=== PATIENT | female | born 1945 | race Caucasian/White ===

== ENCOUNTER 2019-10-13 14:13 | Outpatient (CLI) | payer MEDICARE, OTHER, SELFPAY ==
--- NOTE | ~2019-10-13 | XR_ITS ---
EXAMINATION: XR barium swallow modified EXAM DATE: 10/13/2019 14:54 INDICATION: Dysphagia. TECHNIQUE: Modified barium esophagram was performed by myself to administered fluoroscopy, in conjun ction with speech pathologist who administered barium in varying consistencies as per speech patholog ist documentation. This was recorded on tape. The DAP for this procedure was 0.7 Gycm2. FINDINGS: Oral stage: Adequate function. Pharyngeal phase: Adequate function. Laryngeal penetration: Shallow, ejected. Aspiration: None. Laryngeal sensitivity: Present. Cervical hardware and prominent cricopharyngeal impression. IMPRESSION: Patient tolerated oral feedings in the upright position. Please refer to speech patholo gist findings and specific feeding recommendations. Reviewed, dictated and finalized at location A. H PRESS OPERATOR IMPRESSION: Patient tolerated oral feedings in the upright position. Please r efer to speech pathologist findings and specific feeding recommendations.
--- NOTE | 2019-10-13 16:41 | STOPEVAL ---
MODIFIED BARIUM SWALLOW EVALUATION: Thank you for referring this patient to [facility]. Attending Provider: Matty Mccormick MD Referring Provider: ANDREA Outpatient Evaluation Start: 10/13/19 15:24 Freq: Status: Active Protocol: Document 10/13/19 14:30 BECHERERT (Rec: 10/13/19 15:33 BECHERERT [id number]) Therapy Assessment Status Assessment Status Assessment Status Evaluation Outpatient Past Medical History Neurological History Hx Parkinson's Disease Yes: x 7 years Cardiovascular History Hx Cardiac Disorders No Significant History Respiratory History Hx Respiratory Disorders No Significant History Gastrointestinal History Hx Gastroesophageal Reflux Disease Yes Musculoskeletal History Hx Other Musculoskeletal Disorders Yes: cervical surgery x 2 with hardware Prior Level of Function Prior Swallow Level Prior Intake Method Oral Prior Diet Regular (Level 7 Diet) Prior Liquid Consistency Thin (Level 0 Diet) Pain Assessment Timing of Pain Assessment Timing of Pain Assessment Assessment Self Report Self Report Pain Level 0 Pain Scale Pain Scale Used Numeric (1 - 10) Pain Score Pain Score 0: Self Report Modified Barium Swallow Evaluation Recent Swallowing History Reports Dysphagia Yes: I choke on pill and dry foods Onset of Dysphagia quite awhile ago; at least since my last cervical surgery History of Dysphagia No History of Related Medical Diagnosis Anterior Cervical Spinal Fusion Other Factors Impacting Dysphagia Neurological Impairment History of Pneumonia No Reported Difficult Consistencies Pills,Solids Intake Method Prior to Swallow Oral Evaluation Diet Prior to Swallow Evaluation Regular, Level 7 Liquid Consistency Prior to Swallow Thin (0) Evaluation Consistency Barium Pill Method of Presentation Spoon Oral Preparatory Symptoms Within Functional Limits Oral Phase Symptoms Within Functional Limits Pharyngeal Phase Symptoms Residue in [place] 8 Point Laryngeal Penetration-Aspiration Material Does Not Enter Airway Scale Pharyngeal Phase Comments with chin tuck and extra liquid wash, pt cleared pill Cervical/Esophageal Symptoms Within Functional Limits Uncontrolled 2 Method of Presentation Straw Oral Preparatory Symptoms Within Functional Limits Oral Phase Symptoms Within Functional Limits Pharyngeal Phase Symptoms Within Functional Limits, Laryngeal Penetration Severity of Vallecular Residue None - 0% No Residue Severity of Pyriform Sinus Residue None -
== END 2019-10-13 14:14 | disposition home or self-care (01) ==
PROVIDERS: PCP Family Medicine; Visit Provider Psychiatry & Neurology Neurology
DX: R13.10 Dysphagia, unspecified (principal)
CPT/HCPCS: 92611

== ENCOUNTER 2020-02-25 09:55 | Outpatient (CLI) | payer MEDICARE, OTHER, SELFPAY ==
--- NOTE | 2020-02-25 11:00 | NEURO_ITS ---
Patient Number: [id number] Impression: # Complains of numbness and weakness of left hand. # Left ulnar neuropathy across the elbow. # Evolving left Carpal Tunnel Syndrome. # Needle/EMG exam revealed decreased motor unit potentials in left 1st DI. Nerve Conduction Studies Anti Sensory Summary Table Stim Site NR Peak (ms) P-T Amp (?V) Site1 Site2 Delta-P (ms) Dist (cm) Bebeto (m/s) Left Median Anti Sensory (2-3nd Digit) Wrist 3.4 21.4 Wrist 2-3nd Digit 3.4 14.0 41 Wrist 5.1 33.0 Wrist 2-3nd Digit 3.4 14.0 41 Right Median Anti Sensory (2-3nd Digit) Wrist 2.7 67.8 Wrist 2-3nd Digit 2.7 14.0 52 Wrist 2.9 44.6 Wrist 2-3nd Digit 2.7 14.0 52 Left Radial Anti Sensory (Base 1st Digit) Wrist 1.5 35.5 Wrist Base 1st Digit 1.5 0.0 Right Radial Anti Sensory (Base 1st Digit) Wrist 2.2 8.7 Wrist Base 1st Digit 2.2 0.0 Left Ulnar Anti Sensory (5th Digit) Wrist 2.1 46.7 Wrist 5th Digit 2.1 14.0 67 Right Ulnar Anti Sensory (5th Digit) Wrist 2.0 31.8 Wrist 5th Digit 2.0 14.0 70 Motor Summary Table Stim Site NR Onset (ms) O-P Amp (mV) Site1 Site2 Delta-0 (ms) Dist (cm) Bebeto (m/s) Left Median Motor (Abd Poll Brev) Wrist 3.4 1.0 Elbow Wrist 5.0 28.0 56 Elbow 8.4 3.1 Right Median Motor (Abd Poll Brev) Wrist 2.7 3.8 Elbow Wrist 4.6 26.0 57 Elbow 7.3 3.0 Left Ulnar Motor (Abd Dig Minimi) Wrist 2.2 6.7 A Elbow Wrist 5.5 27.0 49 A Elbow 7.7 5.2 B Elbow Wrist 4.0 21.0 53 B Elbow 6.2 4.2 Right Ulnar Motor (Abd Dig Minimi) Wrist 2.8 5.7 A Elbow Wrist 4.7 26.0 55 A Elbow 7.5 4.0 F Wave Studies NR F-Lat (ms) L-R F-Lat (ms) Left Median (Mrkrs) (Abd Poll Brev) 28.46 0.58 Right Median (Mrkrs) (Abd Poll Brev) 27.87 0.58 Left Ulnar (Mrkrs) (Abd Dig Min) 27.42 0.42 Right Ulnar (Mrkrs) (Abd Dig Min) 27.01 0.42 EMG Side Muscle Nerve Root Ins Act Fibs Amp Dur Recrt Comment Right 1stDorInt Ulnar C8-T1 Nml Nml Nml Nml Nml Right Ext Indicis Radial (Post Int) C7-8 Nml Nml Nml Nml Nml Right Ext Digitorum Radial (Post Int) C7-8 Nml Nml Nml Nml Nml Right BrachioRad Radial C5-6 Nml Nml Nml Nml Nml Right PronatorTeres Median C6-7 Nml Nml Nml Nml Nml Right Abd Poll Brev Median C8-T1 Nml Nml Nml Nml Nml Left 1stDorInt Ulnar C8-T1 Nml Nml Decr >12ms Reduced Left Ext Indicis Radial (Post Int) C7-8 Nml Nml Nml Nml Nml Left Ext Digitorum Radial (Post Int) C7-8 Nml Nml Nml Nml Nml Left BrachioRad Radial C5-6 Nml Nml Nml Nml Nml Left PronatorTeres Median C6-7 Nml Nml Nml Nml Nml Left Abd Poll Brev Median C8-T1 Nml Nml Nml Nml Nml MTDD
== END 2020-02-25 09:56 | disposition home or self-care (01) ==
PROVIDERS: PCP Family Medicine; Visit Provider Psychiatry & Neurology Neurology
DX: R20.2 Paresthesia of skin (principal); G56.22 Lesion of ulnar nerve, left upper limb; G56.02 Carpal tunnel syndrome, left upper limb
CPT/HCPCS: 95886; 95911

== ENCOUNTER 2020-08-25 15:32 | Outpatient (CLI) | payer MEDICARE, OTHER, SELFPAY ==
--- NOTE | ~2020-08-25 | XR_ITS ---
XR knee RT 2V 08/25/2020 15:51 Indication: Right knee pain Procedure: 2 views right knee Comparison: No prior studies for comparison. Findings: There is mild-moderate tricompartment osteoarthritis of the right knee. No fracture, sublux ation or dislocation. No significant joint effusion. No radiopaque foreign bodies. Impression: 1: Mild-moderate osteoarthritis of the right knee. Reviewed, dictated and finalized at location A. OVEMENT RN Impression: 1: Mild-moderate osteoarthritis of the right knee.
--- NOTE | ~2020-08-25 | US_ITS ---
EXAMINATION: US venous doppler LE EXAM DATE: 08/25/2020 16:43 INDICATION: Right leg pain. TECHNIQUE: Multiple grayscale, color flow and Doppler images of the lower extremity deep venous syste ms bilaterally were obtained and reviewed. Comparison is made to prior examination from 01/11/2011. FINDINGS: Right side: The right common femoral, femoral and profunda veins demonstrate normal color flow, respi ratory variation, augmentation and compressibility. Compressibility, color flow confirmed within the right popliteal, posterior tibial, peroneal, and greater saphenous veins. Incidental Alvarado's cyst m easuring 5.5 x 1.6 x 2.1 cm. Left side: The left common femoral, femoral and profunda veins demonstrate normal color flow, respira tory variation, augmentation and compressibility. Compressibility, color flow confirmed within the l eft popliteal, posterior tibial, peroneal, and greater saphenous veins. IMPRESSION: 1. No lower extremity deep venous thrombosis bilaterally. 2. Small right Alvarado's cyst. Reviewed, dictated and finalized at location A. BOTOMY COORDINATOR
== END 2020-08-25 15:33 | disposition home or self-care (01) ==
PROVIDERS: PCP Family Medicine; Visit Provider Physician Assistant Medical
DX: M79.661 Pain in right lower leg (principal); M79.89 Other specified soft tissue disorders; M25.561 Pain in right knee; M71.21 Synovial cyst of popliteal space [Baker], right knee; M17.11 Unilateral primary osteoarthritis, right knee
CPT/HCPCS: 73560; 93970

== ENCOUNTER 2020-11-10 11:33 | Outpatient (CLI) | payer MEDICARE, SELFPAY | END 2020-11-10 11:34 | disposition home or self-care (01) | PROVIDERS: PCP Family Medicine | DX: Z23 Encounter for immunization (principal) | CPT/HCPCS: 0001A; 91300 ==

== ENCOUNTER 2020-12-01 11:31 | Outpatient (CLI) | payer MEDICARE, SELFPAY | END 2020-12-01 11:32 | disposition home or self-care (01) | LOC: ANHCOVIDVC 11:31 | PROVIDERS: PCP Family Medicine | DX: Z23 Encounter for immunization (principal) | CPT/HCPCS: 0002A; 91300 ==

== ENCOUNTER → 2021-01-07 02:07 | Outpatient (CLI) | payer MEDICARE, SELFPAY ==
[2021-01-07 19:11] LABS: SARS-CoV-2 RNA PCR Negative
== END ==
PROVIDERS: PCP Family Medicine; Visit Provider Internal Medicine Gastroenterology
DX: Z01.812 Encounter for preprocedural laboratory examination (principal); Z20.822 Contact with and (suspected) exposure to COVID-19
CPT/HCPCS: C9803; U0003; U0005

== ENCOUNTER 2021-01-10 02:27 | Day surgery (SDC) | payer MEDICARE, SELFPAY ==
[2021-01-04 10:58] VITALS: BMI 31.1
[2021-01-10 09:52] VITALS: TEMP 36.3; O2SAT 97; BMI 32.8
[2021-01-10 09:53] VITALS: BP 147/69; PULSE 86; RESP 20; O2SAT 97
--- NOTE | 2021-01-10 10:07 | P.PNAN_ITS ---
Anes - Initial Pre Proc Eval Procedure: Operation Date: 01/10/21 11:00 Proposed Procedures p Esophagogastroduodenoscopy - Ace Duncan MD Date/Time: 01/10/21 10:07 Surgeon: Ace Duncan MD Pre Op Diagnosis: dysphagia Patient Data Age: 75 Gender: F Height: 5 ft 2 in Weight: 81.6 kg Last Vital Signs Temp 36.3 C L 01/10/21 09:52 Pulse Ox 97 01/10/21 09:52 Allergies Allergy/AdvReac Type Severity Reaction Status Date / Time cefdinir Allergy Mild Unknown Verified 01/10/21 09:51 fentanyl AdvReac Intermediate hallucinati Verified 12/27/20 12:39 ons Home Medications Medication Instructions Recorded Confirmed Type dicyclomine 10 mg capsule 10 mg PO TID cap 08/25/20 01/04/21 History esomeprazole magnesium 40 mg 40 mg PO DAILY #90 cap 08/25/20 01/04/21 Rx capsule,delayed release atorvastatin 40 mg tablet 40 mg PO DAILY #90 tablet 11/15/20 01/04/21 Rx levothyroxine 75 mcg tablet See Rx Instructions .ROUTE 11/19/20 01/04/21 Rx .COMPLEX #90 tablet trazodone 50 mg tablet See Rx Instructions .ROUTE 11/19/20 01/04/21 Rx .COMPLEX #270 tablet duloxetine 60 mg capsule,delayed See Rx Instructions .ROUTE 12/24/20 01/04/21 Rx release .COMPLEX #60 cap meloxicam 15 mg tablet 15 mg PO DAILY #30 tablet 12/27/20 01/04/21 Rx carbidopa-levodopa [Sinemet] 2 tablet PO TID 01/04/21 01/04/21 History hydroxyzine pamoate 25 mg capsule See Rx Instructions .ROUTE 01/04/21 01/04/21 Rx .COMPLEX #90 cap memantine [Namenda] 10 mg PO BID 01/04/21 01/04/21 History Patient hx anesthesia problems: none Family hx anesthesia problems: none PMFSH Past Medical History Medical History Anxiety and depression BMI 31.0-31.9,adult Essential hypertension Hyperlipidemia Hypothyroidism Parkinson disease Family History Family History Father Family history of multiple sclerosis Family history of migraine headaches Family history of Alzheimer's disease Social History Social History Smoking status: Never smoker Second hand tobacco smoke exposure: No Alcohol intake: never Substance use: never Substance use type: does not use Living arrangements: with family Gender identity (if verbalized by the patient): Female Spiritual care concerns: No Anes - Eval Final PreProcedure Day of Procedure 01/10/21 10:07 Patient weight: obese Heart: regular rate and rhythm Lungs: clear to auscultation Airway: Mallampati scale class II Neurological: other (alert) Last oral intake: >/= 8 hours ASA classification: III Emergent: no Anesthetic plan: proceed Anesthesia type and monitoring: general GIVS and standard monitoring Informed Consent: The patient's anesthetic plan and its attendant risks and benefits were discussed with the patient/family/POA. Questions were solicited a nd answers provided to the satisfaction of the patient/family/POA.
[2021-01-10] MEDS: LACTATED RINGERS 1,000 ML 150 ML IV CONT (10:09)
--- NOTE | 2021-01-10 10:16 | PM.HPGS ---
History of Present Illness History of Present Illness Consent: Risks, benefits, and alternatives have been discussed and questions answered. Patient agrees to proceed with procedure. Chief complaint: dysphagia Narrative: Laurel Klein is a 75 year old female with regurgitation after lying down, using nexium Review of Systems Constitutional: Constitutional: Denies headache(s) and Denies weakness Eyes: Eyes: Denies blurry vision ENT: Reports Normal hearing present, Denies headache(s) and Denies neck pain Cardiovascular: Cardiovascular: Denies chest pain and Denies dyspnea Respiratory: Respiratory: Denies dyspnea Gastrointestinal: Gastrointestinal: Reports no additional gastrointestinal complaints Genitourinary: Genitourinary: Denies dysuria Musculoskeletal: Musculoskeletal: Denies neck pain Integumentary/Breasts: Skin/Breast: Denies dry skin Neurologic: Reports Normal hearing present, Denies headache(s) and Denies weakness Psychiatric: Psychiatric: Denies anxiety Endocrine: Endocrine: Denies change in body appearance Hematologic/Lymphatic: Hematologic/Lymphatic: Denies easy bleeding Allergic/Immunologic: Allergic/Immunologic: Denies urticaria PMFSH Past Medical History Medical History (Updated 01/10/21 @ 10:17 by Ace Duncan MD) Anxiety and depression BMI 31.0-31.9,adult Essential hypertension GERD (gastroesophageal reflux disease) Hyperlipidemia Hypothyroidism Parkinson disease Family History Family History Father Family history of multiple sclerosis Family history of migraine headaches Family history of Alzheimer's disease Social History Social History Smoking status: Never smoker Second hand tobacco smoke exposure: No Alcohol intake: never Substance use: never Substance use type: does not use Living arrangements: with family Gender identity (if verbalized by the patient): Female Spiritual care concerns: No Meds Home Medications and Allergies Home Medications Medication Instructions Recorded Confirmed Type dicyclomine 10 mg capsule 10 mg PO TID cap 08/25/20 01/04/21 History esomeprazole magnesium 40 mg 40 mg PO DAILY #90 cap 08/25/20 01/04/21 Rx capsule,delayed release atorvastatin 40 mg tablet 40 mg PO DAILY #90 tablet 11/15/20 01/04/21 Rx levothyroxine 75 mcg tablet See Rx Instructions .ROUTE 11/19/20 01/04/21 Rx .COMPLEX #90 tablet trazodone 50 mg tablet See Rx Instructions .ROUTE 11/19/20 01/04/21 Rx .COMPLEX #270 tablet duloxetine 60 mg capsule,delayed See Rx Instructions .ROUTE 12/24/20 01/04/21 Rx release .COMPLEX #60 cap meloxicam 15 mg tablet 15 mg PO DAILY #30 tablet 12/27/20 01/04/21 Rx carbidopa-levodopa [Sinemet] 2 tablet PO TID 01/04/21 01/04/21 History hydroxyzine pamoate 25 mg capsule See Rx Instructions .ROUTE 01/04/21 01/04/21 Rx .COMPLEX #90 cap memantine [Namenda] 10 mg PO BID 01/04/21 01/04/21 History Allergies Allergy/AdvReac Type Severity Reaction Status Date / Time cefdinir Allergy Mild Unknown Verified 01/10/21 09:51 fentanyl AdvReac Intermediate hallucinati Verified 12/27/20 12:39 ons Vital Signs Vital Signs - 24 hr 01/10/21 09:52 Temperature 97.3 F L Pulse Oximetry 97 Exam Const: General: comfortable and no acute distress HENMT: General nose exam: Normal nares present Eyes: General: appearance normal, both eyes and all related structures Neck: Neck: no JVD Resp: Auscultation: clear to auscultation bilaterally Cardio: Rate: regular rate Rhythm: regular rhythm GI: Inspection: non-distended GI Palp: Yes Soft to palpation Skin: General skin exam: normal color Neuro: General: gait normal Speech: normal speech Extrem: General: normal to inspection Psych: Mental Status: mental status grossly normal Assessment and Plan Assessment and plan (1) GE
[2021-01-10 10:33] VITALS: BP 117/55; PULSE 79; RESP 32; O2SAT 96
[2021-01-10 10:43] VITALS: BP 118/60; PULSE 80; RESP 29; O2SAT 97
[2021-01-10 10:53] VITALS: BP 130/73; PULSE 85; RESP 16; O2SAT 100
== END 2021-01-10 11:20 | disposition home or self-care (01) ==
PROVIDERS: PCP Family Medicine; Visit Provider Internal Medicine Gastroenterology
PROC: 0DJ08ZZ Inspection of Upper Intestinal Tract, Via Natural or Artificial Opening Endoscopic (ICD-10-PCS; CPT 43235; principal; 2021-01-10 11:00)
DX: K21.9 Gastro-esophageal reflux disease without esophagitis (principal); K44.9 Diaphragmatic hernia without obstruction or gangrene; R13.10 Dysphagia, unspecified; R11.10 Vomiting, unspecified; F41.8 Other specified anxiety disorders; I10 Essential (primary) hypertension; E78.5 Hyperlipidemia, unspecified; E03.9 Hypothyroidism, unspecified; G20 Parkinson's disease; E66.9 Obesity, unspecified; Z68.32 Body mass index [BMI] 32.0-32.9, adult
CPT/HCPCS: 43239; 88305; C9803; J2001; J2704; J7120; U0003; U0005

== ENCOUNTER 2021-08-12 10:53 | Outpatient (CLI) | payer MEDICARE, SELFPAY ==
--- NOTE | ~2021-08-12 | XR_ITS ---
EXAMINATION: XR UGI w barium swallow DATE: 08/12/2021 11:45 INDICATION: Diaphragmatic hernia without obstruction TECHNIQUE: Thick barium contrast with gas effervescent crystals were administered orally. Fluoroscop ic images of the esophagus, stomach, and proximal duodenum were obtained in various projections. The reafter, overhead images of the abdomen were performed. 63 fluoroscopic images. 1 minute of fluorosco py. FINDINGS: The esophagus is normal in caliber, without mucosal lesions or strictures. There is normal esophagea l peristalsis. There is a large hiatal hernia with gastroesophageal reflux. There are cholecystectomy clips. The gastric folds are normal. The proximal duodenum is also normal in appearance. IMPRESSION: 1. Large hiatal hernia with gastroesophageal reflux. Reviewed, dictated and finalized at location A. ET GRINDER
== END 2021-08-12 10:54 | disposition home or self-care (01) ==
PROVIDERS: PCP Family Medicine; Visit Provider Surgery
DX: K21.9 Gastro-esophageal reflux disease without esophagitis (principal); K44.9 Diaphragmatic hernia without obstruction or gangrene
CPT/HCPCS: 74240

== ENCOUNTER 2022-01-10 13:34 | Outpatient (CLI) | payer MEDICARE, SELFPAY ==
--- NOTE | ~2022-01-10 | US_ITS ---
EXAMINATION: US venous doppler [facility] DATE: 01/10/2022 14:54 INDICATION: Lower limb pain. TECHNIQUE: Grayscale ultrasound images without and with compression and Doppler ultrasound images of the bilateral lower extremity veins were obtained. COMPARISON: Ultrasound 08/25/2020 FINDINGS: The visualized portions of right common femoral vein, profunda (deep) femoral vein, femoral vein, pop liteal vein, peroneal veins, posterior tibial veins, and greater saphenous vein outflow are patent. T here is a moderate-sized right Alvarado cyst. The visualized portions of left common femoral vein, profunda femoral vein, femoral vein, popliteal v ein, peroneal veins, posterior tibial veins, and greater saphenous vein outflow are patent. There is a small left Alvarado cyst. IMPRESSION: 1. No deep venous thrombosis. 2. Bilateral Alvarado's cysts. Reviewed, dictated and finalized at location B.
== END 2022-01-10 13:35 | disposition home or self-care (01) ==
PROVIDERS: PCP Family Medicine; Visit Provider Nurse Practitioner Family
DX: M71.22 Synovial cyst of popliteal space [Baker], left knee (principal); M71.21 Synovial cyst of popliteal space [Baker], right knee; R79.1 Abnormal coagulation profile
CPT/HCPCS: 93970

== ENCOUNTER → 2022-01-24 13:02 | Outpatient (CLI) | payer MEDICARE, SELFPAY ==
--- NOTE | ~2022-01-24 | XR_ITS ---
XR knee RT 2V, XR knee LT 2V 01/24/2022 13:31 (accession [id number]), 01/24/2022 13:32 (accession [id number]) Indication: Knee pain Procedure: 2 views each knee Comparison: Right knee series dated 08/25/2020 Findings: There is bilateral moderate polyarticular osteoarthritis of the knees. No acute fracture or traumatic malalignment. No significant joint effusion. No foreign bodies. Impression: 1: Moderate symmetric bilateral tricompartment osteoarthritis of the knees. Reviewed, dictated and finalized at location A. Impression: 1: Moderate symmetric bilateral tricompartment osteoarthritis of the knees. Impression: 1: Moderate symmetric bilateral tricompartment osteoarthritis of the knees.
== END ==
PROVIDERS: PCP Family Medicine; Visit Provider Internal Medicine Rheumatology
DX: M17.0 Bilateral primary osteoarthritis of knee (principal)
CPT/HCPCS: 73560

== ENCOUNTER 2022-08-02 13:15 | Outpatient (CLI) | payer MEDICARE, SELFPAY ==
--- NOTE | ~2022-08-02 | XR_ITS ---
MODIFIED ESOPHAGRAM HISTORY: Dysphagia. TECHNIQUE: Modified barium esophagram was performed on 08/02/2022. I administered fluoroscopy and per formed the exam with speech pathologist. Patient was seated for lateral fluoroscopic imaging for ing estion of thin liquids, pudding, solids and quantified amounts, followed by thin liquids in uncontrol led amounts. This was recorded on tape. A single fluoroscopic spot image was also recorded. The DAP f or this procedure was 1.654 Gycm2. The amount of fluoroscopy time used during this procedure was 2.3 minutes. FINDINGS: Oral stage: Adequate function. Pharyngeal stage: Pharyngeal dysphagia with limited laryngeal elevation with some laryngeal penetrati on without aspiration with uncontrolled thin liquids. Cervical/esophageal stage: Adequate function. IMPRESSION: Patient tolerated regular consistency oral feedings in the upright position. Please jason elate with speech pathologist findings and specific feeding recommendations. Reviewed, dictated and finalized at location A. TING ENGINEER IMPRESSION: Patient tolerated regular consistency oral feedings in the upright position. Please correlate with speech pathologist findings and specific feedi ng recommendations.
--- NOTE | 2022-08-02 17:09 | REHSTMBS ---
Assessment and note entered by Connie Mcpherson SANITARY LANDFILL SUPERVISOR Modified Barium Swallow Evaluation Feeding Type Recommended Oral Food Consistency Regular, Level 7 Liquid Consistency Thin (0) Treatment Recommendations Effortful Swallow,Laryngeal Elevation Exerc, Shyanne Maneuver,Supraglottic Swallow,Tongue Base Exercise,Vocal Fold Adduction Exer ST Clinical Summary MODIFIED BARIUM SWALLOW This patient was seen for a Modified Barium Swallow study at the request of her physician. Patient reports a history of Parkinson's disease and reports that she has had difficulty swallowing pills. Patient reports occasional difficulty with solids. Today the patient was presented with graduated amounts of thin liquid contrast medium, mildly thick liquid, pudding mixed with semi-solid contrast medium, and fruit and cracker coated with the pudding mixture. Patient elicited quick swallows with no issues noted until uncontrolled thin liquid per cup and per straw. When asked to use head flexion given the thin liquid, she was able to prevent additional penetration into the airway. Results indicate this patient exhibits limited laryngeal elevation contributing to reduced epiglottal inversion and closure that causes penetration into the airway. Patient was instructed in the use of head flexion on all consistencies and she voiced and demonstrated good understanding. Additional Speech Therapy is recommended 2x weekly for 4 weeks to address laryngeal elevation exercises and other exercises to increase the strength of the swallow. Patient requested therapy to begin after the holidays. Please order ST 2x weekly for 4 weeks to address Swallowing Skills.
== END 2022-08-02 13:16 | disposition home or self-care (01) ==
PROVIDERS: PCP Family Medicine; Visit Provider Surgery
DX: R13.10 Dysphagia, unspecified (principal)
CPT/HCPCS: 92611

== ENCOUNTER → 2022-08-15 13:22 | Outpatient (CLI) | payer MEDICARE, SELFPAY ==
--- NOTE | ~2022-08-15 | MR_ITS ---
EXAMINATION: MR brain/brain stem wo con DATE: 08/15/2022 14:27 INDICATION: Headache TECHNIQUE: Magnetic resonance imaging (MRI) of the brain and brainstem was performed without intraven ous contrast. Sequences included sagittal and axial T1-weighted SE, axial diffusion-weighted FS SE, a xial T2*-weighted GRE, axial T2-weighted FLAIR Propeller, and axial T2-weighted Propeller. Apparent d iffusion coefficient (ADC) maps were created. COMPARISON: 04/29/2017. FINDINGS: No acute intracranial hemorrhage, infarction, mass or mass effect. No ventriculomegaly or m idline shift. There are scattered mild periventricular and subcortical white matter changes, most lik masha related to small vessel ischemic disease (microangiopathy). No ventriculomegaly or midline shift. Structures of the posterior fossa including 7/8th cranial nerve complexes are normal. Paranasal sinu ses are normal. Orbits are symmetric. IMPRESSION: 1. No acute intracranial abnormality. 2: Chronic age-related findings. Reviewed, dictated and finalized at location A. F TELEPHONE OPERATOR
== END ==
PROVIDERS: PCP Family Medicine; Visit Provider Student in an Organized Health Care Education/Training Program
DX: R13.10 Dysphagia, unspecified (principal); R51.9 Headache, unspecified
CPT/HCPCS: 70551

== ENCOUNTER 2024-04-04 14:00 | Outpatient (RCR) | payer MEDICARE, SELFPAY ==
--- NOTE | 2024-03-21 15:33 | STOPEVAL1 ---
Assessment and note entered by Connie Mcpherson VP Evaluation Information Assessment Status Evaluation ICD-10 Condition Codes (ST) R13.13 Onset 14 Subjective Information The patient reported that she is here today because she has problem swallowing pills. She reports that the pills get stuck and she can't get it up or down and she just starts choking. Usually she reports this occurs this happens on large capsules or pills with sharp edges. She reports sometimes her throat hurts after these episodes. Patient reports Gabapentin in particular , causes trouble because it is big. Patient denies difficulty swallowing liquids, semi-solids, and solid foods. Patient reports that she frequently clears her throat and that her voice has changed, become more hoarse in the past year. Patient reported that she had a scope possibly for her swallowing two years ago and was told to consider Speech Therapy but she could offer no specific reasons why she was told this. Reported Pain Level Pain Score 0: Self Report Assessment ST Clinical Summary BEDSIDE SWALLOW, DYSARTHRIA, AND VOICE EVALUATIONS Patient was seen for a Bedside Swallow Evaluation, a Dysarthria Evaluation, and a Voice Evaluation after being referred to Speech Therapy for dysphagia. Patient initially reported that she has difficulty swallowing pills, that pills become stuck in her throat and she becomes choked; she denied difficulty swallowing normal food and liquid consistencies. Patient then admitted to a history of Parkinson's disease, reporting that sometimes her cannot hear or understand her. She reports having what she considers to be a hoarse voice for the past year. Through the course of the evaluations today, patient exhibited no difficulty swallowing presented consistencies of thin water per straw and fruit cocktail; she was not presented with pill during this evaluation. Patient also exhibited reduced labial/lingual coordination on diadochokinetic rate task (rapid repetition of speech sounds); patient was able to exhibit precise productions for 3-4 seconds, then poor rhythm with reduced sound precision was noted for the last 1-2 seconds on both labial and lingual productions. Patient commented that she did not realize she h
--- NOTE | 2024-03-28 13:38 | PCSTNOTE ---
Patient cancelled 03/25 due to illness.
--- NOTE | 2024-03-28 13:54 | OPREHPOC ---
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 Target Visit [address] Problem #[address] Goal 1 Goal 1. Patient will complete laryngeal elevation exercises 10 reps each with good strength to reduce laryngeal penetration and/or pyriform sinus residue by improving epiglottal inversion and airway protection. 2. Patient will complete base of tongue retraction exercises along with hard, effortful swallows and swallows with chin tuck against resistance 10 reps each session with good strength. 4. Patient will receive a copy of evidence-based exercises for swallow improvement to complete 10x2 /day outside of therapy visits. Target Visit [address] Problem #[address] Goal 1 Goal 1. Patient will participate in tasks to increase the strength of the vocal cords while maintaining appropriate use of vocal cords 90% of the time. 2. Patient will sustain ?ah? with adequate loudness/increase with an increase in length by 3- 4 seoncds as compared to initial evaluation by time of discharge Target Visit [address] Problem #[address] Goal 1 Goal 1. 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 Target Visit 5
--- NOTE | 2024-04-08 13:37 | PCSTNOTE ---
Session cancelled 04/07 at patient request due to illness. Reschedule re-evaluation for when therapist returns from PTO.
--- NOTE | 2024-05-13 14:17 | STOPDC ---
Assessment and note entered by Connie Mcpherson SOCIOLOGY TEACHER Evaluation Information Assessment Status Discharge - Pt Not Presen Assessment ST Clinical Summary DISCHARGE SUMMARY This patient was seen for an initial Speech Therapy evaluation for swallowing and then three additional Speech Therapy treatments. She then cancelled several times due to illness and no additional Speech Therapy visits were made in spite of [facility] staff attempting to contact patient to schedule. She had been instructed in home exercise program and made progress during treatment sessions; discharge was expected after next scheduled session. She is discharged with goals essentially met although progress could not be measured secondary to cancelled visits. It is expected that patient will continue home exercise program independently and continue to make progress. Plan of Care ST Services Indicated No
== END 2024-05-13 15:33 | disposition home or self-care (01) ==
LOC: ANHST 14:00
PROVIDERS: PCP Family Medicine; Visit Provider Student in an Organized Health Care Education/Training Program
DX: R13.10 Dysphagia, unspecified (principal)
CPT/HCPCS: 92507; 92522; 92526; 92610